=== PATIENT | male | born 1955 | race Caucasian/White ===

== ENCOUNTER 2018-01-27 18:53 | Emergency (ER) | payer BC ==
[2018-01-27] MEDS ORDERED: Aspirin 81 MG Tab.Chew PO ONE (19:13)
[2018-01-27] MEDS ORDERED: GI Cocktail Oral Solution 30 ML PO ONE (19:13)
[2018-01-27] MEDS ORDERED: Sodium Chloride 0.9% 10 ML Syringe FLUSH PRN (19:13)
--- NOTE | 2018-01-27 19:16 | EDM.PDOC ---
ED HPI GENERAL MEDICAL PROBLEM - General Chief Complaint: Chest Pain Stated Complaint: CHEST PAIN [id number] Time Seen by Provider: 01/27/18 19:12 - History of Present Illness INITIAL COMMENTS - FREE TEXT/NARRATIVE: patient underwent to department today with complaints of midsternal chest pain. Since approximately 5:00 he has had chest pain that is different than his typical heartburn he relates. The pain in his chest radiates up into his neck has jaundice teeth. he does complain of some shortness of breath. He did take an 81 mg aspirin prior to arrival in the emergency department. No nausea no vomiting. No diaphoresis. No ankle swelling. No abdominal pain. No hematuria dysuria or urinary frequency. No black or tarry stools. Chest Pain Score (Numeric/FACES): 8 - Related Data Allergies Allergy/AdvReac Type Severity Reaction Status Date / Time No Known Allergies Allergy Verified 01/27/18 19:00 Home Meds: Home Meds Lisinopril 0.5 tab PO DAILY 01/27/18 [History] Past Medical History HEENT History: Reports: Impaired Vision Cardiovascular History: Reports: Hypertension Respiratory History: Reports: Sleep Apnea Gastrointestinal History: Reports: GERD Genitourinary History: Reports: None Musculoskeletal History: Reports: None Neurological History: Reports: None Psychiatric History: Reports: None Endocrine/Metabolic History: Reports: None Hematologic History: Reports: None Immunologic History: Reports: None Oncologic (Cancer) History: Reports: None Dermatologic History: Reports: None Social & Family History - Tobacco Use Smoking Status *Q: Never Smoker - Recreational Drug Use Recreational Drug Use: No ED ROS GENERAL - Review of Systems Review Of Systems: ROS reveals no pertinent complaints other than HPI. ED EXAM, GENERAL - Physical Exam Exam: See Below Exam Limited By: No Limitations General Appearance: Alert, WD/WN, No Apparent Distress Nose: Normal Inspection Throat/Mouth: Normal Inspection Head: Atraumatic Neck: Normal Inspection Respiratory/Chest: No Respiratory Distress, Lungs Clear, Normal Breath Sounds, No Accessory Muscle Use, Chest Non-Tender Cardiovascular: Normal Peripheral Pulses, Regular Rate, Rhythm, No Edema, No JVD , No Murmur, No Rub Peripheral Pulses: 2+: Carotid (L), Carotid (R), Radial (L), Radial (R), Posterior Tibial (L), Posterior Tibial (R), Dorsalis Pedis (L), Dorsalis Pedis ( R) GI/Abdominal: Normal Bowel Sounds, Soft, Non-Tender, No Distention (Male) Exam: Deferred Rectal (Males) Exam: Deferred Back Exam: Normal Inspection, Full Range of Motion Extremities: Normal Inspection, Normal Range of Motion, Non-Tender, Normal Capillary Refill Neurological: Alert, Oriented, CN II-XII Intact Psychiatric: Normal Affect, Normal Mood Skin Exam: Warm, Dry, Intact, Normal Color, No Rash Course - Vital Signs Last Recorded V/S: Last Vital Signs Temp 36.8 C 01/27/18 19:00 Pulse 79 01/27/18 19:35 Resp 18 01/27/18 19:35 BP 125/74 01/27/18 19:46 Pulse Ox 97 01/27/18 19:35 - Orders/Labs/Meds Orders: Active Orders 24 hr Category Date Time Status EKG 12 Lead [EKG Documentation Completion] [RC] URGENT Care 01/27/18 19:13 Active EKG 12 Lead [EKG Documentation Completion] [RC] URGENT Care 01/27/18 19:38 Active Peripheral IV Care [RC] . DIRECTED Care 01/27/18 19:13 Active Chest 1V Frontal [CR] Urgent Exams 01/27/18 19:51 Ordered Chest 2V [CR] Urgent Exams 01/27/18 19:13 Ordered INR,PT,PROTHROMBIN TIME [COAG] Stat Lab 01/27/18 19:04 Received PTT,PARTIAL THROMBOPLSTIN TIME [COAG] Stat Lab 01/27/18 19:04 Received Heparin Sodium/0.45% NaCl [Heparin 25,000 Units in 1/2 Med 01/27/18 19:45 Active NS 500 ML] 25,000 units in 500 ml IV TITRATE Nitroglycerin/D5W [Nitroglycerin 25 MG/D5W 250 ML] Med 01/27/18 19:45 Active 25 mg in 250 ml IV TITRATE Sodium Chloride 0.9% [Saline Flush] Med 01/27/18 19:13 Active 10 ml FLUSH ASDIRECTED PRN Peripheral IV Insertion Adult [OM.PC] Stat Oth 01/27/18 19:13 Ordered Medication Orders Nitroglycerin/Dextrose (Nitroglycerin 25 Mg/D5w 250 Ml) 25 mg in 250 mls @ 6 mls/hr IV TITRATE [facility]; Protocol Last Admin: 01/27/18 19:53 Dose: 10 mcg/min, 6 mls/hr Heparin Sodium/Sodium Chloride (Heparin 25,000 Units In 1/2 Ns 500 Ml) 25,000 units in 500 mls @ 28.848 mls/hr IV TITRATE EAN Sodium Chloride (Saline Flush) 10 ml FLUSH ASDIRECTED PRN PRN Reason: Keep Vein Open Last Admin: 01/27/18 19:33 Dose: 10 ml Labs: Laboratory Tests 01/27/18 01/27/18 Range/Units 19:08 19:08 WBC 10.4 H (5.0-10.0) 10^3/uL RBC 4.85 (4.6-6.2) 10^6/uL Hgb 15.2 (14.0-18.0) g/dL Hct 45.8 (40.0-54.0) % MCV 94.4 (80-100) fL MCH 31.3 (27.0-34.0) pg MCHC 33.2 (33.0-35.0) g/dL Plt Count 252 (150-450) 10^3/uL Neut % (Auto) 60.6 (42.2-75.2) % Lymph % (Auto) 25.7 (20.5-50.1) % Edgar % (Auto) 9.2 H (2-8) % Eos % (Auto) 4.1 H (1.0-3.0) % Baso % (Auto) 0.4 (0.0-1.0) % Sodium 138 (135-145) mmol/L Potassium 4.1 (3.6-5.0) mmol/L Chloride 102 (101-111) mmol/L Carbon Dioxide 26.0 (21.0-31.0) mmol/L Anion Gap 14.1 BUN 16 (7-18) mg/dL Creatinine 1.1 (0.6-1.3) mg/dL Est Cr Clr Drug Dosing 69.09 mL/min Estimated GFR (MDRD) > 60 BUN/Creatinine Ratio 14.54 Glucose 116 H (74-105) mg/dL Calcium 9.2 (8.4-10.2) mg/dl Total Bilirubin 0.5 (0.2-1.0) mg/dL AST 24 (10-42) IU/L ALT 40 (10-60) IU/L Alkaline Phosphatase 72 (42-121) IU/L Troponin I 0.04 H* (0.00-0.02) ng/ml Total Protein 7.9 (6.7-8.2) g/dl Albumin 4.3 (3.2-5.5) g/dl Globulin 3.6 Albumin/Globulin Ratio 1.19 Meds: Medications Generic Name Dose Route Start Last Admin Trade Name Freq PRN Reason Stop Dose Admin Nitroglycerin/Dextrose 25 mg in 250 mls @ 6 mls/hr 01/27/18 19:45 01/27/18 19 :53 Nitroglycerin 25 Mg/D5w 250 Ml IV 10 mcg/min TITRATE EAN 6 mls/hr Administration Protocol 10 MCG/MIN Heparin Sodium/Sodium Chloride 25,000 units in 500 mls @ 28.848 mls/hr 19:45 Heparin 25,000 Units In 1/2 Ns 500 Ml IV TITRATE EAN 12 UNITS/KG/HR Sodium Chloride 10 ml 01/27/18 19:13 01/27/18 19:33 Saline Flush FLUSH 10 ml ASDIRECTED PRN Administration Keep Vein Open Discontinued Medications Generic Name Dose Route Start Last Admin Trade Name Freq PRN Reason Stop Dose Admin Al Hydroxide/Mg Hydroxide 30 ml 01/27/18 19:13 01/27/18 19:18 Gi Cocktail PO 01/27/18 19:14 30 ml ONETIME ONE Administration Aspirin 243 mg 01/27/18 19:13 01/27/18 19:17 Aspirin PO 01/27/18 19:14 243 mg ONETIME ONE Administration Heparin Sodium (Porcine) 5,000 units 01/27/18 19:41 Heparin Sodium IVPUSH 01/27/18 19:42 ONETIME ONE Morphine Sulfate 2 mg 01/27/18 19:38 01/27/18 19:49 Morphine IVPUSH 01/27/18 19:39 2 mg ONETIME ONE Administration Morphine Sulfate 2 mg 01/27/18 20:17 01/27/18 20:26 Morphine IVPUSH 01/27/18 20:18 2 mg ONETIME ONE Administration Morphine Sulfate 2 mg 01/27/18 20:21 Morphine IVPUSH 01/27/18 20:22 ONETIME ONE Nitroglycerin 0.4 mg 01/27/18 19:31 01/27/18 19:33 Nitrostat SL 01/27/18 19:32 0.4 mg ONETIME ONE Administration Nitroglycerin Confirm 01/27/18 19:32 01/27/18 19:41 Nitrostat Administered 01/27/18 19:33 Not Given Dose 0.4 mg .ROUTE .STK-MED ONE Nitroglycerin 0.4 mg 01/27/18 19:38 01/27/18 19:41 Nitrostat SL 01/27/18 19:39 0.4 mg ONETIME ONE Administration Nitroglycerin 0.4 mg 01/27/18 19:47 01/27/18 19:46 Nitrostat SL 01/27/18 19:48 0.4 mg ONETIME ONE Administration Ondansetron HCl 4 mg 01/27/18 20:17 01/27/18 20:23 Zofran IV 01/27/18 20:18 4 mg ONETIME ONE Administration Ondansetron HCl 4 mg 01/27/18 20:21 Zofran IV 01/27/18 20:22 ONETIME ONE - Re-Assessments/Exams Free Text/Narrative Re-Assessment/Exam: 01/27/18 20:30 initially the patient was given 3 baby aspirins. GI cocktail with no improvement of his pain. His pain actually worsened while he was in the emergency department. A repeat EKG does not show any change in his ST segment or the rest of his pathology on his EKG. Nitroglycerin tablets multiple reduce his pain down to a 10. He had an elevated troponin. He was started on heparin drip and bolus as well as a nitroglycerin drip. His pain was much improved. I discussed the findings of an end STEMI as well as unstable angina and he needs to be transferred to higher level of care were cardiology is available. He was understanding of this and his questions were answered. Departure - Departure Time of Disposition: 20:31 Disposition: DC/Tfer to Acute Hospital 02 Reason for Transfer *Q: Primary PCI Indicated Clinical Impression: NSTEMI (non-ST elevated myocardial infarction), Unstable angina Forms: ED Department Discharge, Interfacility Transfer [facility] ED Communication - Discussed Case With (1) Discussed Case With (1): Admitting Provider (Sammyru called back at 2008. HPI ER COURSE findings and concerns for unstable angina NSTEMI to Dr. Dobson. Questions were answered and he accepted the patient in transfer at this time with no new orders.) - My Orders Last 24 Hours: My Active Orders 01/27/18 19:04 INR,PT,PROTHROMBIN TIME [COAG] Stat PTT,PARTIAL THROMBOPLSTIN TIME [COAG] Stat 01/27/18 19:13 EKG 12 Lead [EKG Documentation Completion] [RC] URGENT Peripheral IV Care [RC] . DIRECTED Chest 2V [CR] Urgent Sodium Chloride 0.9% [Saline Flush] 10 ml FLUSH ASDIRECTED PRN Peripheral IV Insertion Adult [OM.PC] Stat 01/27/18 19:38 EKG 12 Lead [EKG Documentation Completion] [RC] URGENT 01/27/18 19:45 Heparin Sodium/0.45% NaCl [Heparin 25,000 Units in 1/2 NS 500 ML] 25,000 units in 500 ml IV TITRATE Nitroglycerin/D5W [Nitroglycerin 25 MG/D5W 250 ML] 25 mg in 250 ml IV TITRATE 01/27/18 19:51 Chest 1V Frontal [CR] Urgent - Assessment/Plan Last 24 Hours: My Active Orders 01/27/18 19:04 INR,PT,PROTHROMBIN TIME [COAG] Stat PTT,PARTIAL THROMBOPLSTIN TIME [COAG] Stat 01/27/18 19:13 EKG 12 Lead [EKG Documentation Completion] [RC] URGENT Peripheral IV Care [RC] . DIRECTED Chest 2V [CR] Urgent Sodium Chloride 0.9% [Saline Flush] 10 ml FLUSH ASDIRECTED PRN Peripheral IV Insertion Adult [OM.PC] Stat 01/27/18 19:38 EKG 12 Lead [EKG Documentation Completion] [RC] URGENT 01/27/18 19:45 Heparin Sodium/0.45% NaCl [Heparin 25,000 Units in 1/2 NS 500 ML] 25,000 units in 500 ml IV TITRATE Nitroglycerin/D5W [Nitroglycerin 25 MG/D5W 250 ML] 25 mg in 250 ml IV TITRATE 01/27/18 19:51 Chest 1V Frontal [CR] Urgent Assessment:: NSTEMI Unstable angina. Plan: Transfer to [facility]. Dr. Dobson.
[2018-01-27] MEDS ORDERED: Nitroglycerin 0.4 MG Tab.SL SL ONE ×3 (19:31→19:47)
[2018-01-27] MEDS ORDERED: Nitroglycerin 0.4 MG Tab.SL ONE (19:32)
[2018-01-27 19:35] LABS: ANION GAP 14.1; CHLORIDE,CL 102 mmol/L (101-111); SODIUM,NA 138 mmol/L (135-145)
[2018-01-27] MEDS ORDERED: Morphine 2 MG/ML Syringe IVPUSH ONE ×3 (19:38→20:21)
[2018-01-27] MEDS ORDERED: Heparin Sodium 5,000 Units/ML Vial IVPUSH ONE (19:41)
[2018-01-27] MEDS ORDERED: Nitroglycerin/D5W 25 MG/250 ML BOTTLE IV SCH (19:45)
[2018-01-27] MEDS ORDERED: Heparin Sodium/0.45% NaCl 25,000 UNITS/500 ML BAG IV SCH (19:45)
[2018-01-27] MEDS ORDERED: Ondansetron 4 MG/2 ML SDV IV ONE ×2 (20:17→20:21)
--- NOTE | 2018-01-28 17:52 | EKG ---
01/27/2018 - RICKIE MEJIA - TIME: 1859 hours. FINDINGS: EKG shows sinus rhythm. [facility] /[id number]
--- NOTE | 2018-01-28 17:52 | EKG ---
01/27/2018 - RICKIE MEJIA - TIME: 1938 hours. FINDINGS: EKG shows sinus rhythm. [facility] /[id number]
== END 2018-01-27 20:45 ==
LOC: DL.ED 18:53
DX: I21.4 Non-ST elevation (NSTEMI) myocardial infarction (principal); I20.0 Unstable angina; I10 Essential (primary) hypertension; Z79.899 Other long term (current) drug therapy
CPT/HCPCS: 36415; 71045; 80053; 84484; 85025; 85610; 85730; 93005; 96365; 96375; 96376; 99285; A9270; J1644; J2270; J2405; J3490; J7050

== ENCOUNTER 2018-02-05 12:09 | Emergency (ER) | payer BC ==
[2018-02-05] MEDS ORDERED: Sodium Chloride 0.9% 10 ML Syringe FLUSH PRN (12:22)
--- NOTE | 2018-02-05 12:53 | CR ---
Clinical history: 62-year-old male chest pain. Interpretation: Negative exam. Upright AP portable chest film obese patient unremarkable and unchanged since 27 January 2018. Normal cardiac silhouette without cephalization of flow, signs of alveolar edema or dependent pleural effusion. No new lung mass, hilar lymphadenopathy, focal lobar pneumonia or atelectasis/collapse. No pneumothorax or free subdiaphragmatic air.
[2018-02-05 12:57] LABS: ANION GAP 12.9; CHLORIDE,CL 103 mmol/L (101-111); SODIUM,NA 137 mmol/L (135-145)
--- NOTE | 2018-02-05 16:33 | EDM.PDOC ---
ED HPI GENERAL MEDICAL PROBLEM - General Chief Complaint: Chest Pain Stated Complaint: FROM CLINIC Time Seen by Provider: 02/05/18 12:20 Source of Information: Reports: Patient, RN, RN Notes Reviewed History Limitations: Reports: No Limitations - History of Present Illness INITIAL COMMENTS - FREE TEXT/NARRATIVE: Patient presents to ER from [facility] with complaint of chest pain. 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 He had hot flash last night. Today his upper left shoulder tenderness--chest pain ( mid sternal) began last night at 2100. Able to sleep. He took nothing. Onset: Today Location: Reports: Chest, Upper Extremity, Left Quality: Reports: Ache Severity: Moderate Improves with: Reports: None Worsens with: Reports: None Associated Symptoms: Reports: No Other Symptoms Chest Pain Score (Numeric/FACES): 3 - Related Data Allergies Allergy/AdvReac Type Severity Reaction Status Date / Time No Known Allergies Allergy Verified 02/05/18 12:20 Home Meds: Home Meds Lisinopril 5 mg PO DAILY 01/27/18 [History] Aspirin [Ecotrin] 81 mg PO DAILY 02/05/18 [History] Clopidogrel Bisulfate [Clopidogrel] 75 mg PO DAILY 02/05/18 [History] Metoprolol Tartrate 25 mg PO BID 02/05/18 [History] Nitroglycerin 0.4 mg SL ASDIRECTED 02/05/18 [History] atorvaSTATin Calcium [Atorvastatin Calcium] 40 mg PO DAILY 02/05/18 [History] Past Medical History HEENT History: Reports: Impaired Vision Cardiovascular History: Reports: Hypertension Respiratory History: Reports: Sleep Apnea Gastrointestinal History: Reports: GERD Genitourinary History: Reports: None Musculoskeletal History: Reports: None Neurological History: Reports: None Psychiatric History: Reports: None Endocrine/Metabolic History: Reports: None Hematologic History: Reports: None Immunologic History: Reports: None Oncologic (Cancer) History: Reports: None Dermatologic History: Reports: None - Past Surgical History Cardiovascular Surgical History: Reports: Coronary Artery Stent Social & Family History - Tobacco Use Smoking Status *Q: Never Smoker - Caffeine Use Caffeine Use: Reports: Coffee - Alcohol Use Days Per Week of Alcohol Use: 2 Number of Drinks Per Day: 2 Total Drinks Per Week: 4 - Recreational Drug Use Recreational Drug Use: No ED ROS GENERAL - Review of Systems Review Of Systems: ROS reveals no pertinent complaints other than HPI. ED EXAM, GENERAL - Physical Exam Exam: See Below Exam Limited By: No Limitations General Appearance: Alert, WD/WN, No Apparent Distress Eye Exam: Bilateral Eye: EOMI, Normal Inspection, PERRL Ears: Normal External Exam, Normal Canal, Hearing Grossly Normal, Normal TMs Nose: Normal Inspection, Normal Mucosa, No Blood Throat/Mouth: Normal Inspection, Normal Lips, Normal Teeth, Normal Gums, Normal Oropharynx, Normal Voice, No Airway Compromise Head: Atraumatic, Normocephalic Neck: Normal Inspection, Supple, Non-Tender, Full Range of Motion Respiratory/Chest: No Respiratory Distress, Lungs Clear, Normal Breath Sounds, No Accessory Muscle Use, Chest Non-Tender Cardiovascular: Normal Peripheral Pulses, Regular Rate, Rhythm, No Edema, No Gallop, No JVD, No Murmur, No Rub GI/Abdominal: Normal Bowel Sounds, Soft, Non-Tender, No Organomegaly, No Distention, No Abnormal Bruit, No Mass (Male) Exam: Deferred Rectal (Males) Exam: Deferred Back Exam: Normal Inspection, Full Range of Motion, NT Extremities: Normal Inspection, Normal Range of Motion, Non-Tender, Normal Capillary Refill, No Pedal Edema Neurological: Alert, Oriented, CN II-XII Intact, Normal Cognition, Normal Gait, Normal Reflexes, No Motor/Sensory Deficits Psychiatric: Normal Affect, Normal Mood Skin Exam: Warm, Dry, Intact, Normal Color, No Rash Lymphatic: No Adenopathy EKG INTERPRETATION EKG Date: 02/05/18 Time: 12:24 Rhythm: Other (sinus rhythm) Rate (Beats/Min): 68 EKG Interpretation Comments: EKG shows borderline left axis deviation and borderline T abnormalities, inferior leads. Course - Vital Signs Last Recorded V/S: Last Vital Signs Temp 97.3 F 02/05/18 14:28 Pulse 62 02/05/18 14:28 Resp 18 02/05/18 14:28 BP 130/75 02/05/18 14:28 Pulse Ox 99 02/05/18 14:28 - Orders/Labs/Meds Orders: Active Orders 24 hr Category Date Time Status EKG Documentation Completion [RC] STAT Care 02/05/18 12:22 Active EKG Documentation Completion [RC] STAT Care 02/05/18 16:35 Active Peripheral IV Care [RC] . DIRECTED Care 02/05/18 12:24 Active UA W/MICROSCOPIC [URIN] Stat Lab 02/05/18 13:15 Ordered Peripheral IV Insertion Adult [OM.PC] Stat Oth 02/05/18 12:22 Ordered Labs: Laboratory Tests 02/05/18 02/05/18 02/05/18 Range/Units 12:32 12:32 12:32 WBC 8.4 (5.0-10.0) 10^3/uL RBC 4.97 (4.6-6.2) 10^6/uL Hgb 15.8 (14.0-18.0) g/dL Hct 46.3 (40.0-54.0) % MCV 93.2 (80-100) fL MCH 31.8 (27.0-34.0) pg MCHC 34.1 (33.0-35.0) g/dL Plt Count 278 (150-450) 10^3/uL Neut % (Auto) 66.7 (42.2-75.2) % Lymph % (Auto) 19.9 L (20.5-50.1) % [place] % (Auto) 9.7 H (2-8) % Eos % (Auto) 3.2 H (1.0-3.0) % Baso % (Auto) 0.5 (0.0-1.0) % PT 10.4 (9.0-12.0) SEC INR 1.0 (0.9-1.2) Sodium 137 (135-145) mmol/L Potassium 3.9 (3.6-5.0) mmol/L Chloride 103 (101-111) mmol/L Carbon Dioxide 25.0 (21.0-31.0) mmol/L Anion Gap 12.9 BUN 17 (7-18) mg/dL Creatinine 1.0 (0.6-1.3) mg/dL Est Cr Clr Drug Dosing 76.00 mL/min Estimated GFR (MDRD) > 60 BUN/Creatinine Ratio 17.00 Glucose 119 H (74-105) mg/dL Calcium 9.0 (8.4-10.2) mg/dl Total Bilirubin 0.9 (0.2-1.0) mg/dL AST 26 (10-42) IU/L ALT 38 (10-60) IU/L Alkaline Phosphatase 68 (42-121) IU/L Troponin I 0.08 H* (0.00-0.02) ng/ml Total Protein 7.9 (6.7-8.2) g/dl Albumin 4.3 (3.2-5.5) g/dl Globulin 3.6 Albumin/Globulin Ratio 1.19 Urine Color (YELLOW) Urine Appearance (CLEAR) Urine pH (5.0-9.0) Ur Specific [place] (1.005-1.030) Urine Protein (NEGATIVE) Urine Glucose (UA) (NEGATIVE) Urine Ketones (NEGATIVE) Urine Occult Blood (NEGATIVE) Urine Nitrite (NEGATIVE) Urine Bilirubin (NEGATIVE) Urine Urobilinogen (0.2-1.0) mg/dL Ur Leukocyte Esterase (NEGATIVE) Urine RBC /HPF Urine WBC (0-5/HPF) /HPF Ur Epithelial Cells /HPF Urine Mucus /LPF 02/05/18 02/05/18 Range/Units 13:15 16:34 WBC (5.0-10.0) 10^3/uL RBC (4.6-6.2) 10^6/uL Hgb (14.0-18.0) g/dL Hct (40.0-54.0) % MCV (80-100) fL MCH (27.0-34.0) pg MCHC (33.0-35.0) g/dL Plt Count (150-450) 10^3/uL Neut % (Auto) (42.2-75.2) % Lymph % (Auto) (20.5-50.1) % [place] % (Auto) (2-8) % Eos % (Auto) (1.0-3.0) % Baso % (Auto) (0.0-1.0) % PT (9.0-12.0) SEC INR (0.9-1.2) Sodium (135-145) mmol/L Potassium (3.6-5.0) mmol/L Chloride (101-111) mmol/L Carbon Dioxide (21.0-31.0) mmol/L Anion Gap BUN (7-18) mg/dL Creatinine (0.6-1.3) mg/dL Est Cr Clr Drug Dosing mL/min Estimated GFR (MDRD) BUN/Creatinine Ratio Glucose (74-105) mg/dL Calcium (8.4-10.2) mg/dl Total Bilirubin (0.2-1.0) mg/dL AST (10-42) IU/L ALT (10-60) IU/L Alkaline Phosphatase (42-121) IU/L Troponin I 0.07 H* (0.00-0.02) ng/ml Total Protein (6.7-8.2) g/dl Albumin (3.2-5.5) g/dl Globulin Albumin/Globulin Ratio Urine Color Yellow (YELLOW) Urine Appearance Clear (CLEAR) Urine pH 5.5 (5.0-9.0) Ur Specific [place] <= 1.005 (1.005-1.030) Urine Protein Negative (NEGATIVE) Urine Glucose (UA) Negative (NEGATIVE) Urine Ketones Negative (NEGATIVE) Urine Occult Blood Negative (NEGATIVE) Urine Nitrite Negative (NEGATIVE) Urine Bilirubin Negative (NEGATIVE) Urine Urobilinogen 0.2 (0.2-1.0) mg/dL Ur Leukocyte Esterase Negative (NEGATIVE) Urine RBC Not seen /HPF Urine WBC Not seen (0-5/HPF) /HPF Ur Epithelial Cells Rare /HPF Urine Mucus Rare /LPF Meds: Medications Discontinued Medications Generic Name Dose Route Start Last Admin Trade Name Freq PRN Reason Stop Dose Admin Sodium Chloride 10 ml 02/05/18 12:22 02/05/18 12:20 Saline Flush FLUSH 10 ml ASDIRECTED PRN Administration Keep Vein Open - Radiology Interpretation Free Text/Narrative:: Chest x-ray: Negative exam. See rad report. Departure - Departure Time of Disposition: 17:14 Disposition: Home, Self-Care 01 Condition: Fair Clinical Impression: Angina at rest Instructions: Nonspecific Chest Pain, [id number], Angina Pectoris, Easy-to- Read Referrals: Siri Henry NP [Primary Care Provider] - Forms: ED Department Discharge Additional Instructions: Follow up with your line tester Rest and do not over do it! - My Orders Last 24 Hours: My Active Orders 02/05/18 12:22 EKG Documentation Completion [RC] STAT Peripheral IV Insertion Adult [OM.PC] Stat 02/05/18 12:24 Peripheral IV Care [RC] . DIRECTED 02/05/18 13:15 UA W/MICROSCOPIC [URIN] Stat 02/05/18 16:35 EKG Documentation Completion [RC] STAT - Assessment/Plan Last 24 Hours: My Active Orders 02/05/18 12:22 EKG Documentation Completion [RC] STAT Peripheral IV Insertion Adult [OM.PC] Stat 02/05/18 12:24 Peripheral IV Care [RC] . DIRECTED 02/05/18 13:15 UA W/MICROSCOPIC [URIN] Stat 02/05/18 16:35 EKG Documentation Completion [RC] STAT
== END 2018-02-05 17:35 | disposition home or self-care (01) ==
LOC: DL.ED 12:09
DX: I20.9 Angina pectoris, unspecified (principal); I10 Essential (primary) hypertension; K21.9 Gastro-esophageal reflux disease without esophagitis; Z79.82 Long term (current) use of aspirin; Z79.899 Other long term (current) drug therapy
CPT/HCPCS: 36415; 71045; 80053; 81001; 84484; 85025; 85610; 93005; 99285; J7050

== ENCOUNTER 2019-06-25 07:53 | Day surgery (SDC) | payer BC ==
[~2019-06-25 07:53] MED LIST: Midazolam 1 MG/ML 2 ML SDV ONE; fentaNYL 100 MCG/2 ML SDV ONE
[2019-06-25] MEDS ORDERED: Midazolam 1 MG/ML 2 ML SDV IV ONE ×7 (07:54→09:19)
[2019-06-25] MEDS ORDERED: fentaNYL 100 MCG/2 ML SDV IV ONE ×3 (07:54→09:13)
[2019-06-25] MEDS ORDERED: Dextrose 5%-0.45% NaCl 1,000 ML IV SCH (08:30)
--- NOTE | 2019-06-25 15:16 | OR ---
DATE: 06/25/2019 PREOPERATIVE DIAGNOSIS: Screening colonoscopy. POSTOPERATIVE DIAGNOSIS: Screening colonoscopy. PROCEDURE: Total colonoscopy. ANESTHESIA: Conscious sedation with IV Versed and fentanyl. SPECIMEN: None. OPERATIVE FINDINGS: Normal colonoscopy. RECOMMENDATIONS: Followup screening 10 years or sooner for symptoms. INDICATIONS FOR PROCEDURE: This 63-year-old male presents for screening colonoscopy. His last one was over 10 years ago and was reported as normal. PROCEDURE IN DETAIL: After adequate preparation, colonoscope was inserted into the rectum. This was easily passed all the way to the cecum. Confirmation of the cecum was made by visualization of the ileocecal valve and palpation in the right lower quadrant. The bowel prep was good. On withdrawal of the scope, there were no abnormalities noted. Anal and rectal examinations are also normal. Air was suctioned from the colon and the scope removed. [facility] /[id number] CC: Siri Henry NP
== END 2019-06-25 11:20 | disposition home or self-care (01) ==
LOC: DL.ENDO 07:53
PROVIDERS: ATTEND Surgery
DX: Z12.11 Encounter for screening for malignant neoplasm of colon (principal); Z88.8 Allergy status to other drugs, medicaments and biological substances; Z79.02 Long term (current) use of antithrombotics/antiplatelets; Z79.82 Long term (current) use of aspirin; Z79.899 Other long term (current) drug therapy
CPT/HCPCS: 45378; J2250; J3010; J7042; G0121

== ENCOUNTER 2020-12-01 13:25 | Emergency (ER) | payer BC ==
[2020-12-01] MEDS ORDERED: cefTRIAXone 2 GM in Sodium Chloride 0.9% 100 ML IV ONE (17:02)
[2020-12-01] MEDS ORDERED: Clindamycin Phosphate 600 MG in Sodium Chloride 0.9% 100 ML IV ONE (17:03)
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
[2020-12-01] MEDS ORDERED: Acetaminophen 500 MG Tab PO ONE (17:26)
== END 2020-12-01 18:40 | disposition home or self-care (01) ==
LOC: DL.ED 13:25
DX: S51.852A Open bite of left forearm, initial encounter (principal); L03.114 Cellulitis of left upper limb; I25.10 Atherosclerotic heart disease of native coronary artery without angina pectoris; I10 Essential (primary) hypertension; E66.9 Obesity, unspecified; Z68.30 Body mass index [BMI] 30.0-30.9, adult; Z79.82 Long term (current) use of aspirin; Z79.899 Other long term (current) drug therapy; Z95.5 Presence of coronary angioplasty implant and graft; Z79.02 Long term (current) use of antithrombotics/antiplatelets; Z88.8 Allergy status to other drugs, medicaments and biological substances; W55.01XA Bitten by cat, initial encounter
CPT/HCPCS: 36415; 85025; 87040; 96365; 96367; 99283; 99284-25; A9270-GY; J0696; J3490